=== PATIENT | male | born 1985 | race Caucasian/White ===

== ENCOUNTER 2019-07-02 13:52 | Emergency (ER) | payer OTHER, SELFPAY ==
[2019-07-02 13:56] VITALS: BP 167/110; PULSE 87; RESP 18; TEMP 37; O2SAT 99
--- NOTE | 2019-07-02 14:53 | ED.UPPEXIN ---
HPI - Extremity Injury (Upper) General Chief Complaint: Extremity Injury, Upper Stated Complaint: right forearm problem Time Seen by Provider: 07/02/19 14:45 Source: patient and RN notes reviewed Mode of arrival: ambulatory Limitations: no limitations History of Present Illness HPI narrative: Pt is a 33 y/o male presenting to the ED c/o wrist injury. Pt reports his rt wrist suddenly locked up last night. Pt states he has weakness in his rt wrist and has difficulty with ROM, but denies wrist pain. Pt states he has never had this happen previously. Pt notes he uses his hands frequently at his job involving repetitive movement. Pt also reports mild numbness and tingling in his rt wrist. Onset (ago): unknown (Last night) Other Extremity Injury: Right: wrist Place: home Associated symptoms: weakness (Rt wrist), numbness (Mild rt wrist) and other (Mild rt tingling) Related Data Home Medications Medication Instructions Recorded Confirmed amlodipine [Norvasc] 07/02/19 Allergies Allergy/AdvReac Type Severity Reaction Status Date / Time No Known Allergies Allergy Verified 07/02/19 14:01 Review of Systems Review of Systems: All systems reviewed & are unremarkable except as noted in HPI and below Musculoskeletal: Musculoskeletal: Reports muscle weakness (Rt wrist) and Denies other (Rt wrist pain) Neurologic: Reports numbness (Mild rt wrist) and Reports tingling (Mild rt wrist) PMFSH Past Medical History Medical History (Updated 07/02/19 @ 16:45 by Luca Cadet MD) HTN (hypertension) Surgical History Surgical History No significant past surgical history Social History Social History Smoking status: Unknown if ever smoked Gender identity (if verbalized by the patient): Male Exam Narrative: Exam Narrative: General appearance: Well-developed, well-nourished Skin: Normal color Head: Normocephalic, nontraumatic Eyes: Clear conjunctiva ENT: Oropharynx normal, ears normal, nose normal Neck: Supple, nontender Chest and respiratory: Airway patent, no respiratory distress, no accessory muscle use Heart: Regular rate/rhythm Abdomen: Soft, nontender, no organomegaly, quiet bowel sounds Vascular: Normal peripheral pulses, normal capillary refill. Musculoskeletal: Normal range of motion, nontender back, slight weakness and tenderness of the right wrist. Neurologic: Alert and oriented ?3, [employer] is normal as tested, no gross motor deficit Course Course Emergency Course: Unchanged Consultations Consultation #1: Discussed with Neurologist Dr. Baptiste. Accepted the pt for consultation. Can see the pt on Saturday in office. Date: 07/02/19 Time: 15:29 Vital Signs Vital signs: Vital Signs Temperature 37.0 C 07/02/19 13:56 Pulse Rate 87 07/02/19 13:56 Respiratory Rate 18 07/02/19 13:56 Blood Pressure 167/110 H 07/02/19 13:56 Pulse Oximetry 99 07/02/19 13:56 Temperature 37.0 C 07/02/19 13:56 Pulse Rate 87 07/02/19 13:56 Respiratory Rate 18 07/02/19 13:56 Blood Pressure 167/110 H 07/02/19 13:56 Pulse Oximetry 99 07/02/19 13:56 MDM - Extremity Injury (Upper) MDM Narrative Medical decision making narrative: Patient have a repetitive movement of the right upper extremity at work, carpal tunnel versus drop wrist is my concern. Patient will be discharged on wrist splint and follow-up with Dr. Baptiste Saturday for nerve conduction test. Critical Care Time Critical Care Time Critical Care Time: No Discharge Plan Discharge Clinical Impression: Acute carpal tunnel syndrome Qualifiers: Laterality: right Qualified Code(s):
[2019-07-02 17:04] VITALS: PULSE 72; RESP 16; O2SAT 98
== END 2019-07-02 17:00 | disposition home or self-care (01) ==
PROVIDERS: Emergency Provider Emergency Medicine
DX: G56.01 Carpal tunnel syndrome, right upper limb (principal); I10 Essential (primary) hypertension
CPT/HCPCS: 99283